=== PATIENT | male | born 1955 | race Caucasian/White ===

== ENCOUNTER 2019-09-17 10:46 | Emergency (ER) | payer MEDICARE, OTHER ==
[~2019-09-17] VITALS: Ht 185.4 cm; Wt 136.1 kg
[2019-09-17] MEDS ORDERED: SODIUM BICARBONATE 8.4% INJ 50ML SYRINGE IV ONE (10:47)
== END 2019-09-17 15:24 | disposition expired ==
LOC: EDBD 10:46 → EDSEX 10:46 → ER 10:46
DX: I46.9 Cardiac arrest, cause unspecified (principal); J96.90 Respiratory failure, unspecified, unspecified whether with hypoxia or hypercapnia; E11.9 Type 2 diabetes mellitus without complications
CPT/HCPCS: 31500; 92950